=== PATIENT | female | born 1950 | race Caucasian/White ===

== ENCOUNTER → 2024-09-22 | Outpatient (CLI) | payer MEDICARE, OTHER ==
--- NOTE | 2024-09-22 17:07 | MR ---
INDICATION: Patient age:Female; 74 years old; Reason for study: C34.12 MALIGNANT NEOPLASM OF UPPER LOBE, LEFT BRON; PHH. COMPARISON: None. TECHNIQUE: Multi planar, multi sequence imaging was performed through the brain. The patient was then given 10 cc of Gadobutrol intravenously and multi planar, T1 fat-saturation images were obtained. FINDINGS: Motion degraded examination. The bliss-white junctions, ventricular system, basal cisterns appear unremarkable. Age-appropriate cer ebral volume loss. Diffusion-weighted imaging shows no evidence of restricted diffusion to suggest ac [place]/subacute infarct. Intracranial arterial flow voids are maintained. Midline structures show no abn ormality. Patchy foci of high T2/FLAIR signal intensity are seen within the periventricular and subco rtical white matter. Additional involvement of the central [place]. After administration of gadolinium, no abnormal enhancement is seen. The bone marrow signal is within normal limits. The paranasal sinuses are unremarkable. Bilateral ap hak[place]. IMPRESSION: 1. No evidence of intracranial mass, acute/subacute infarct, or abnormal enhancement. 2. Nonspecific mild white matter changes, likely related to small vessel ischemic disease. [facility], , 09/22/2024 5:05 PM
== END | disposition home or self-care (01) ==
LOC: RADMRIMAIN 14:29
PROVIDERS: ATTEND Internal Medicine Hematology & Oncology
DX: C34.12 Malignant neoplasm of upper lobe, left bronchus or lung (principal); R90.82 White matter disease, unspecified
CPT/HCPCS: 70553; A9585